=== PATIENT | female | born 1945 | race Caucasian/White ===

== ENCOUNTER → 2017-03-29 | Outpatient (CLI) | payer MEDICARE, OTHER ==
[~2017-03-29] MED LIST: CATHETER FLUSH 10 ML SYR IV PRN; IOHEXOL 350 MG/ML 100 ML (OMNIPAQUE 350) VIAL IV ONE; NS 100 ML (IVPB) BAG IV ONE
--- NOTE | 2017-03-29 11:37 | Diagnostic Imaging Report ---
PROCEDURE: CT abdomen and pelvis with contrast. TECHNIQUE: Multiple contiguous axial images were obtained through the abdomen and pelvis after administration of intravenous contrast. INDICATION: Abdominal and pelvic pain. 100 mL of Omnipaque 350 is administered intravenously. FINDINGS: The lung bases appear clear. The liver, the spleen, the pancreas, and adrenal glands appear unremarkable. The kidneys have symmetric enhancement and contrast excretion. There is no hydronephrosis. The abdominal aorta is normal in caliber. No para-aortic significantly enlarged lymph nodes seen. The gallbladder has been removed. Mild prominence of the intra-and extrahepatic bile ducts is normal after cholecystectomy. Small appendix appears to be present with no abnormality. There is diverticulosis. No diverticulitis. There is a tiny fat-containing umbilical hernia. There is suggestion of prior hysterectomy. Focal calcification in the right ovary is seen measuring 5 mm. No associated fat density lesion to suggest a dermoid. This could be from a prior nonspecific insult. No free fluid or fluid collection in the abdomen or pelvis is seen. There is suggestion of pelvic floor weakness with urinary bladder and other pelvic structures appear to extend lower than expected. The osseous structures appear grossly unremarkable. IMPRESSION: 1. Diverticulosis. No diverticulitis. 2. Tiny fat-containing umbilical hernia. 3. Suggestion of pelvic floor weakness resulting in slight downward extension of the pelvic organs lower than expected. Dictated by: Dictated on workstation # [id number]
== END ==
LOC: RAD 10:27
PROVIDERS: ATTEND Family Medicine
DX: K57.30 Diverticulosis of large intestine without perforation or abscess without bleeding (principal); K42.9 Umbilical hernia without obstruction or gangrene; R10.2 Pelvic and perineal pain
CPT/HCPCS: 74177

== ENCOUNTER → 2018-11-15 | Outpatient (CLI) | payer MEDICARE, OTHER ==
--- NOTE | 2018-11-15 16:05 | Diagnostic Imaging Report ---
PROCEDURE: CT sinuses without contrast TECHNIQUE: Multiple contiguous axial images were obtained through the sinuses without the use of intravenous contrast. Coronal and sagittal reformations were then performed. INDICATION: Pain behind the eyes and chronic sinusitis. FINDINGS: The frontal sinus is clear. Ethmoid air cells show some mild mucosal thickening. There appear to be posterior changes of a partial ethmoidectomy. There is slight mucosal thickening of the sphenoid sinus. Very minimal mucosal thickening of the right maxillary sinus is seen. There are postsurgical changes with partial resection of bilateral maxillary sinus crenshaw and bilateral uncinectomies. No air-fluid levels or evidence of acute sinusitis are seen. The mastoids are well aerated. IMPRESSION: Postsurgical changes to the paranasal sinuses and mild paranasal sinus mucosal disease. No findings to suggest acute sinusitis are seen. Dictated by: Dictated on workstation # [id number]
== END ==
LOC: RAD 14:43
PROVIDERS: ATTEND Otolaryngology Otolaryngology/Facial Plastic Surgery
DX: J32.9 Chronic sinusitis, unspecified (principal); Z98.890 Other specified postprocedural states
CPT/HCPCS: 70486

== ENCOUNTER 2018-11-19 14:00 | Outpatient (CLI) | payer MEDICARE, OTHER | END 2018-11-19 14:40 | disposition home or self-care (01) | LOC: SLEEP 14:00 | PROVIDERS: ATTEND Otolaryngology Otolaryngology/Facial Plastic Surgery | DX: G47.33 Obstructive sleep apnea (adult) (pediatric) (principal) ==

== ENCOUNTER → 2019-05-17 | Outpatient (RCR) | payer MEDICARE, OTHER | END | disposition home or self-care (01) | LOC: CR3 04-17 15:21 | PROVIDERS: ATTEND Family Medicine | DX: Z29.8 Encounter for other specified prophylactic measures (principal) ==

== ENCOUNTER 2019-06-10 10:46 | Outpatient (RCR) | payer MEDICARE, OTHER | END 2019-06-19 | disposition home or self-care (01) | LOC: CR3 10:46 | PROVIDERS: ATTEND Family Medicine | DX: Z29.8 Encounter for other specified prophylactic measures (principal) ==

== ENCOUNTER → 2019-07-10 | Outpatient (CLI) | payer MEDICARE, OTHER ==
[~2019-07-10] MED LIST changes: -CATHETER FLUSH 10 ML SYR IV PRN; +HOLD METFORMIN - RECEIVED CONTRAST 20 ML VIAL IV SCH
[2019-07-10 13:06] LABS: CREATININE SERUM 0.95 MG/DL (0.60-1.30)
--- NOTE | 2019-07-10 13:58 | Diagnostic Imaging Report ---
PROCEDURE: CT abdomen and pelvis with contrast. TECHNIQUE: Multiple contiguous axial images were obtained through the abdomen and pelvis after administration of intravenous contrast. Auto Exposure Controls were utilized during the CT exam to meet ALARA standards for radiation dose reduction. INDICATION: Abdominal and pelvic pain. Patient does have a history of cystocele and rectocele. COMPARISON: Correlation is made with a prior CT from 03/29/2017. FINDINGS: The lung bases are clear. No discrete liver mass is identified. Gallbladder appears to be surgically absent. No biliary ductal dilatation is seen. The pancreas and spleen are unremarkable. No adrenal mass is detected. The kidneys are unremarkable. No hydronephrosis is identified. The aorta is non-aneurysmal. No central retroperitoneal or mesenteric lymphadenopathy is detected. The small and large bowel loops are normal in caliber. The appendix is visualized in the right lower quadrant and appears unremarkable. There is diverticulosis of the sigmoid but no evidence of acute diverticulitis. Calcification associated with the right ovary is again noted. There is no ascites. Bladder appears unremarkable. Pelvic floor relaxation appears similar to prior CT from 2017. No lymphadenopathy is seen. Bony structures show multilevel degenerative changes in the lumbar spine. IMPRESSION: Overall stable appearance of the abdomen and pelvis when compared with prior CT from 03/29/2017. No acute feature is detected. Dictated by: Dictated on workstation # [id number]
== END ==
LOC: RAD 12:11
PROVIDERS: ATTEND Family Medicine
DX: R10.2 Pelvic and perineal pain (principal); Z87.42 Personal history of other diseases of the female genital tract
CPT/HCPCS: 36415; 74177; 82565; 84520

== ENCOUNTER → 2019-11-07 | Outpatient (CLI) | payer MEDICARE, OTHER ==
--- NOTE | 2019-11-07 13:54 | Diagnostic Imaging Report ---
EXAMINATION: Magnetic resonance imaging of the right knee without intravenous contrast DATE: November 07, 2019. COMPARISON: None. INDICATION: 74-year-old female, right knee pain. Twisting injury in October 2019. TECHNIQUE: Multiplanar, multisequence non contrast enhanced MR imaging was accomplished. FINDINGS: MENISCI: There is an oblique tear with inferior surface extension involving the body and posterior horn of the medial meniscus. There is increased signal in the anterior horn of the lateral meniscus which most likely relates to an anterior horn tear of the lateral meniscus. LIGAMENTS AND TENDONS: The anterior and posterior cruciate ligaments are intact. The medial collateral ligament is intact. The iliotibial band, mid third lateral capsular ligament, fibular collateral ligament, biceps femoris tendon and conjoined tendon are intact. The quadriceps tendon and patella ligament are intact. JOINT: There is mild generalized patellar cartilage thinning. There is no knee joint effusion, prominent synovitis, or intra-articular body. BONE: There is unremarkable bone marrow signal. Specifically, negative for fracture, osteomyelitis, osteonecrosis, or marrow replacing process. BURSAE AND SOFT TISSUES: There is a very small amount of fluid in the popliteal fossa without sizable Shrestha's cyst. There is medial subcutaneous edema near the medial collateral ligament which may relate to adjacent medial meniscal pathology. IMPRESSION: 1. Oblique tear with inferior surface extension involving the body and posterior horn of the medial meniscus. 2. Tear of the anterior horn of the lateral meniscus. 3. Intact anterior and posterior cruciate ligaments. Additional ligaments and tendons are intact. 4. Mild patellofemoral compartment osteoarthritis. No knee joint effusion. 5. No acute fracture, bone contusion, or evidence of osteonecrosis. Dictated by: Dictated on workstation # [id number]
== END ==
LOC: RAD 12:22
PROVIDERS: ATTEND Nurse Practitioner
DX: S83.221A Peripheral tear of medial meniscus, current injury, right knee, initial encounter (principal); S83.281A Other tear of lateral meniscus, current injury, right knee, initial encounter; M17.11 Unilateral primary osteoarthritis, right knee; X58.XXXA Exposure to other specified factors, initial encounter
CPT/HCPCS: 73721

== ENCOUNTER → 2019-12-10 | Outpatient (CLI) | payer MEDICARE, OTHER ==
--- NOTE | 2019-12-10 16:36 | Diagnostic Imaging Report ---
PROCEDURE: MRI left joint lower extremity without contrast. TECHNIQUE: Multiplanar, multisequence non contrast-enhanced MRI of the left lower extremity was accomplished. INDICATION: Left knee pain. COMPARISON: None FINDINGS: No acute fracture or dislocation is seen in the left knee. Mild bone marrow edema at the medial tibial plateau in the medial femoral condyle as well as the intercondylar eminence is likely due to degenerative change. There is a moderate left knee joint effusion and a large Shrestha's cyst which measures 3.0 x 1.8 cm in size. The articular cartilage in the patellofemoral compartment demonstrates moderate thinning with small full-thickness defects causing subcortical cystlike changes. The articular cartilage in the medial compartment demonstrates moderate thinning and surface irregularity with small near full-thickness defects. The articular cartilage in the lateral compartment also demonstrates moderate thinning and surface irregularity with small full-thickness fissures. There is a horizontal tear of the posterior horn extending into the body of the medial meniscus. The lateral meniscus demonstrates horizontal tearing of the anterior horn extending into the body. The anterior and posterior cruciate ligaments are intact. The medial collateral ligament demonstrates adjacent edema, but no tearing is seen. The lateral collateral ligamentous complex appears intact. The extensor mechanism is intact. The medial and lateral retinacula are intact. The soft tissues about the knee are otherwise unremarkable. IMPRESSION: 1. Mild tricompartmental degenerative change and cartilage loss in the left knee with small full-thickness cartilage defects. 2. Tearing of the medial and lateral menisci. 3. Moderate left knee joint effusion and a large Shrestha's cyst. 4. Edema adjacent to the medial collateral ligament may represent grade 1 sprain. Dictated by: Dictated on workstation # [id number]
== END ==
LOC: RAD 15:35
PROVIDERS: ATTEND Nurse Practitioner
DX: S83.242A Other tear of medial meniscus, current injury, left knee, initial encounter (principal); S83.282A Other tear of lateral meniscus, current injury, left knee, initial encounter; M17.12 Unilateral primary osteoarthritis, left knee; M25.462 Effusion, left knee; M71.22 Synovial cyst of popliteal space [Baker], left knee; X58.XXXA Exposure to other specified factors, initial encounter
CPT/HCPCS: 73721